=== PATIENT | female | born 1960 | race Caucasian/White ===

== ENCOUNTER 2016-08-25 18:28 | Emergency (ER) | payer MEDICAID ==
[~2016-08-25] VITALS: Ht 167.6 cm; Wt 98.0 kg
[2016-08-25] MEDS ORDERED: ASPIRIN 325 MG TABLET PO ONE (19:00)
[2016-08-25 19:01] LABS: BASOPHILS % (AUTO) 0.4 % (0.0-2.0); EOSINOPHILS # (AUTO) 0.1 /CMM (0.0-0.7); EOSINOPHILS % (AUTO) 1.9 % (0.0-6.0); HEMATOCRIT 31 % (33-45); HEMOGLOBIN 10.6 g/dL (11.5-14.8); LYMPHOCYTES # (AUTO) 0.9 /CMM (0.8-4.8); LYMPHOCYTES % (AUTO) 19.4 % (20.0-44.0); MEAN CORPUSCULAR HEMOGLOBIN 29 PG (26.0-33.0); MEAN CORPUSCULAR HGB CONC 34 g/dl (31.0-36.0); MEAN CORPUSCULAR VOLUME 84 fL (82-100); MONOCYTES # (AUTO) 0.4 /CMM (0.1-1.30); MONOCYTES % (AUTO) 8.3 % (2.0-12.0); NEUTROPHILS # (AUTO) 3.1 /CMM (1.8-8.9); PLATELET COUNT (AUTO) 301 /CMM (150-450); RDW COEFFICIENT OF VARIATION 12.8 (11.5-15.0); RED BLOOD CELL COUNT(AUTO) 3.67 MIL/uL (4.0-5.2); WHITE BLOOD COUNT (AUTO) 4.5 K/uL (4.3-11.0)
--- NOTE | 2016-08-25 19:03 | NUR ---
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 PATIENT IS AAOX4, ABLE TO MOVE ALL EXTREMITIES, NO S/S OF ACUTE DISTRESS. BREATHING EVEN AND UNLABORED. NONDIAPHORETIC. 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 PER FAMILY, PATIENT HAD STENT PLACEMENT 20.5 WEEKS AGO. INITIATED COMFORT MEASURES.
[2016-08-25] MEDS ORDERED: ASPIRIN 325 MG TABLET ONE (19:09)
[2016-08-25 19:10] LABS: CALCIUM, SERUM 8.5 mg/dL (8.5-10.1); CARBON DIOXIDE 27 mmol/L (21-32); CHLORIDE 110 mmol/L (98-107); CREATININE 0.7 mg/dL (0.6-1.3); GLUCOSE 139 mg/dL (74-106); POTASSIUM 3.4 mmol/L (3.5-5.1); SODIUM SERUM 142 mmol/L (136-145); UREA NITROGEN, BLOOD 15 mg/dL (7-18)
[2016-08-25 19:16] LABS: ALANINE AMINOTRANSFERASE 21 U/L (12-78); ALBUMIN 3.3 g/dL (3.4-5.0); ALKALINE PHOSPHATASE 61 U/L (46-116); ASPARTATE AMINOTRANSFERASE 13 U/L (15-37); BILIRUBIN,DIRECT 0.1 mg/dL (0.0-0.2); BILIRUBIN,TOTAL 0.4 mg/dL (0.2-1.0)
[2016-08-25 19:19] LABS: TROPONIN I < 0.017 ng/mL (0.00-0.056)
[2016-08-25 19:29] LABS: D-DIMER 4.05 mg/L(FEU (0.17-0.50); INR 1.16 (0.87-1.13); PROTHROMBIN TIME 12.5 SECS (9.5-12.7)
[2016-08-25] MEDS ORDERED: CT SWABBABLE VALVE TRANS SET 1 EA INFUS.SET MC ONE (19:50)
[2016-08-25] MEDS ORDERED: IOHEXOL-350 100 ML VIAL IV ONE (19:50)
[2016-08-25] MEDS ORDERED: IV NS 0.9% 250 ML IV ONE (19:50)
[2016-08-25 22:15] VITALS: BP 132/78
--- NOTE | 2016-08-25 22:15 | NUR ---
IV removed. Catheter intact and site benign. Pressure and 4x4 applied to site. No bleeding noted. Patient discharged to home in stable condition. Written and verbal after care instructions given. Patient verbalizes understanding of instruction. Patient is ambulatory with steady gait, accompanied by family going home. No further complaints.
== END 2016-08-25 22:16 | disposition home or self-care (01) ==
LOC: ER 18:29
DX: R07.89 Other chest pain (principal); I25.2 Old myocardial infarction
CPT/HCPCS: 36415; 71010; 71275; 80048; 80076; 84484 ×2; 85025; 85378; 85730; 93005; 99285; A4606; J7050; Q9967; Z7610

== ENCOUNTER 2016-09-29 14:18 | Inpatient (IN) | payer MEDICAID ==
[~2016-09-29] VITALS: Ht 165.1 cm; Wt 90.7 kg
--- NOTE | 2016-09-29 14:21 | NUR ---
PT CALLED TO TRIAGE, PT NOT IN WAITING ROOM
--- NOTE | 2016-09-29 14:35 | NUR ---
DR FRANCES AT BEDSIDE FOR EVAL
--- NOTE | 2016-09-29 14:37 | NUR ---
SOB AND WEAKNESS X 2 DAYS. GOWNED PT PLACED ON MONITOR. AWAITING MD ORDER.
--- NOTE | 2016-09-29 14:40 | NUR ---
CALLED NURSING LICENSED NUCLEAR OPERATOR FOR TELE BED
--- NOTE | 2016-09-29 14:45 | NUR ---
RAC #20 IV ACCESS. BLOOD SAMPLE COLLECTED SENT TO LAB
[2016-09-29 14:47] LABS: BASOPHILS % (AUTO) 0.4 % (0.0-2.0); EOSINOPHILS # (AUTO) 0.1 /CMM (0.0-0.7); EOSINOPHILS % (AUTO) 2.6 % (0.0-6.0); HEMATOCRIT 35 % (33-45); HEMOGLOBIN 11.8 g/dL (11.5-14.8); LYMPHOCYTES # (AUTO) 0.8 /CMM (0.8-4.8); LYMPHOCYTES % (AUTO) 28.8 % (20.0-44.0); MEAN CORPUSCULAR HEMOGLOBIN 29 PG (26.0-33.0); MEAN CORPUSCULAR HGB CONC 34 g/dl (31.0-36.0); MEAN CORPUSCULAR VOLUME 87 fL (82-100); MONOCYTES # (AUTO) 0.3 /CMM (0.1-1.30); MONOCYTES % (AUTO) 11.6 % (2.0-12.0); NEUTROPHILS # (AUTO) 1.7 /CMM (1.8-8.9); NEUTROPHILS % (AUTO) 56.6 % (43.0-81.0); PLATELET COUNT (AUTO) 195 /CMM (150-450); RDW COEFFICIENT OF VARIATION 14.9 (11.5-15.0); RED BLOOD CELL COUNT(AUTO) 4.04 MIL/uL (4.0-5.2); WHITE BLOOD COUNT (AUTO) 2.9 K/uL (4.3-11.0)
[2016-09-29] MEDS ORDERED: ASPI-991 PO (14:48)
[2016-09-29] MEDS ORDERED: ESCI10TA PO (14:48)
[2016-09-29] MEDS ORDERED: CLOP75TA2 PO (14:48)
[2016-09-29] MEDS ORDERED: FAMO20TA8 PO (14:48)
[2016-09-29] MEDS ORDERED: TRAM50TA2 PO (14:48)
[2016-09-29] MEDS ORDERED: FLUD0.1T PO (14:48)
[2016-09-29] MEDS ORDERED: ASPIRIN 325 MG TABLET ONE (14:51)
[2016-09-29] MEDS ORDERED: NITROGLYCERIN PACKET 1 GM PACKET ONE (14:52)
[2016-09-29 14:57] LABS: CALCIUM, SERUM 8.6 mg/dL (8.5-10.1); CARBON DIOXIDE 30 mmol/L (21-32); CHLORIDE 108 mmol/L (98-107); CREATININE 0.7 mg/dL (0.6-1.3); GLUCOSE 90 mg/dL (74-106); POTASSIUM 3.8 mmol/L (3.5-5.1); SODIUM SERUM 141 mmol/L (136-145); UREA NITROGEN, BLOOD 9 mg/dL (7-18)
--- NOTE | 2016-09-29 14:58 | NUR ---
VERBAL ORDER FROM DR FRANCES START O2 @2LPM VIA NC CONT FOR SOB
[2016-09-29] MEDS ORDERED: NITROGLYCERIN PACKET 1 GM PACKET TD ONE (15:00)
[2016-09-29] MEDS ORDERED: ASPIRIN 325 MG TABLET PO ONE (15:00)
[2016-09-29 15:01] LABS: INR 1.22 (0.87-1.13); PROTHROMBIN TIME 12.8 SECS (9.5-12.7)
[2016-09-29 15:03] LABS: ALANINE AMINOTRANSFERASE 25 U/L (12-78); ALKALINE PHOSPHATASE 64 U/L (46-116); ASPARTATE AMINOTRANSFERASE 21 U/L (15-37); BILIRUBIN,DIRECT 0.2 mg/dL (0.0-0.2); BILIRUBIN,TOTAL 0.7 mg/dL (0.2-1.0); TOTAL PROTEIN, SERUM 7.4 g/dL (6.4-8.2)
[2016-09-29 15:05] LABS: TROPONIN I < 0.017 ng/mL (0.00-0.056)
--- NOTE | 2016-09-29 15:35 | NUR ---
PAGED DR LANGLEY FOR ADMISSION
--- NOTE | 2016-09-29 15:36 | NUR ---
DR FRANCES ON THE PHONE WITH DR LANGLEY
--- NOTE | 2016-09-29 15:38 | NUR ---
PAGED DR CARRASQUILLO FOR CONSULT
--- NOTE | 2016-09-29 15:55 | NUR ---
GAVE REPORT TO FABIANA HERNANDEZCREATIVE SPECIALIST ROOM [address] TRANSF[address]S [address]OL. DR LANGLEY ADMITTING. ACS DX
--- NOTE | 2016-09-29 17:05 | NUR ---
rn telephoniclead burner/initial notes Admitted a 55 years old female patient from ER who came in with the diagnosis of SOB AND WEAKNESS Accompanied by Son, daughter and ER nurse via maile. No complaint of pain or discomfort noted, nor chest pain. Pt on 2 L Nasal cannula and tolerated well. Pt is currently alert and oriented x 3, verbally responsive and able to make needs known speaks Danish speaking. Pt on tele monitor sinus dustin heart rate of 57. Ambulatory skin intact. Pt daughter signed authorization for use or disclosure of health information for [facility]. pt currently eating [place] offered by daughter no difficulty noted . Kept patient clean and comfortable in bed, call light with in patient reach, will continue to monitor accordingly.
--- NOTE | 2016-09-29 18:09 | NUR ---
RN NOTE PATIENT COMPLAINING OF CHEST PAIN PATIENT STATES SHE IS HAVING CHEST PAIN , BURNING SENSATION UNDER HER SKIN. MD CARRASQUILLO CONTACT AND INFORMED AND MD ORDER MYLANTA 30CC PO X 1 DOSE NOW AND NITROGLYCERIN PASTE Q 12HRS
[2016-09-29] MEDS ORDERED: MAG HYDROX/AL HYDROX/SIMETH 30 ML UDC PO PRN (18:30)
--- NOTE | 2016-09-29 19:20 | NUR ---
RN INITIAL NOTES RECEIVED PATIENT IN BED, OBSERVED TO BE LETHARGIC, EASILY AROUSABLE WITH VERBAL AND TACTILE STIMULI. DENIES ANY PAIN AND DISCOMFORT. ON 2LPM OF O2 VIA NC, RESPIRATION IS EVEN AND UNLABORED WITH NO DISTRESS. PATIENT IS SB ON MONITOR, WITH HR AT 46, PATIENT WITH NO DISTRESS, VS STABLE. R AC G20, FLUSHED AND PATENT, NO SIGNS OF INFILTRATION. PATIENT'S NEEDS ANTICIPATED AND MET. SAFETY AND COMFORT ENSURED. WILL F/UP WITH DR. LANGLEY FOR ADMIT ORDERS. CALL LIGHT IN REACH. WILL MONITOR.
[2016-09-29 20:00] VITALS: BP 102/55
--- NOTE | 2016-09-29 20:06 | NUR ---
SENIOR COMPENSATION ANALYST FINAL NOTE On tele monitor SR heart rate of 48. Ambulatory skin intact. Informed Dr. LANGLEY AND DR CARRASQUILLO NOTIFIED regarding admission and admission orders and diet and made aware. [place] offered. Kept patient clean and comfortable in bed, call light with in patient reach, will continue to monitor accordingly. CONTINUATION OF CARE ENDORSED TO PM RN
[2016-09-29 20:30] VITALS: BP 102/55
[2016-09-29] MEDS: METOPROLOL TARTRATE 25 MG TABLET PO SCH (21:00)
[2016-09-29] MEDS: NITROGLYCERIN 30 GM TUBE TP SCH (21:49)
[2016-09-29] MEDS ORDERED: ATORVASTATIN 40 MG TABLET PO SCH (22:00)
--- NOTE | 2016-09-29 22:00 | NUR ---
RN NOTES PATIENT'S METOPROLOL NON-ADMINISTERED D/T PATIENT'S HR IS LOW, HR AT 46. CN MADE AWARE. ALL OTHER HS MEDS GIVEN ORDERED.
[2016-09-30] VITALS: BP 119/63
--- NOTE | 2016-09-30 00:30 | NUR ---
RN NOTES PATIENT IN BED, SLEEPING COMFORTABLY. NO DISTRESS. REMAINS ON SB WITH HR OF 46, SLEEPING AND COMFORTABLY, EASILY AROUSABLE WITH STIMULI. CALL LIGHT IN REACH. PATIENT PLACED ON NPO ORDERED. WILL MONITOR.
[2016-09-30 04:00] VITALS: BP 129/65
--- NOTE | 2016-09-30 06:38 | NUR ---
RN CLOSING NOTES PATIENT WITH NO ACUTE CHANGE IN CONDITION OBSERVED OVERNIGHT. NO C/O CHEST PAIN AND PATIENT WITH NO DISTRESS. REMAINS SB OVERNIGHT WITH HR AT >/= 45. IN AM, AROUND 0530, PATIENT'S HR WAS IN THE 50-60s. PATIENT'S NEEDS ANTICIPATED AND MET. SAFETY AND COMFORT ENSURED. BED IN LOW AND LOCKED POSITION. WILL ENDORSED ACCORDINGLY FOR CONTINUITY OF CARE.
[2016-09-30 06:44] LABS: BASOPHILS % (AUTO) 0.2 % (0.0-2.0); EOSINOPHILS # (AUTO) 0.1 /CMM (0.0-0.7); EOSINOPHILS % (AUTO) 1.2 % (0.0-6.0); HEMATOCRIT 35 % (33-45); LYMPHOCYTES # (AUTO) 0.7 /CMM (0.8-4.8); LYMPHOCYTES % (AUTO) 15.6 % (20.0-44.0); MEAN CORPUSCULAR HEMOGLOBIN 30 PG (26.0-33.0); MEAN CORPUSCULAR HGB CONC 34 g/dl (31.0-36.0); MEAN CORPUSCULAR VOLUME 87 fL (82-100); MONOCYTES # (AUTO) 0.4 /CMM (0.1-1.30); MONOCYTES % (AUTO) 8.9 % (2.0-12.0); NEUTROPHILS # (AUTO) 3.5 /CMM (1.8-8.9); NEUTROPHILS % (AUTO) 74.1 % (43.0-81.0); PLATELET COUNT (AUTO) 180 /CMM (150-450); RDW COEFFICIENT OF VARIATION 15.7 (11.5-15.0); RED BLOOD CELL COUNT(AUTO) 4.03 MIL/uL (4.0-5.2); WHITE BLOOD COUNT (AUTO) 4.8 K/uL (4.3-11.0)
[2016-09-30 07:06] LABS: ALBUMIN 3.6 g/dL (3.4-5.0); BILIRUBIN,TOTAL 0.7 mg/dL (0.2-1.0); CALCIUM, SERUM 8.3 mg/dL (8.5-10.1); CREATININE 0.6 mg/dL (0.6-1.3); POTASSIUM 3.5 mmol/L (3.5-5.1)
[2016-09-30 07:09] LABS: CHOLESTEROL 121 mg/dL (<200); FERRITIN 73 ng/mL (8-388); HDL CHOLESTEROL 49 mg/dL (40-60); LDL 69 mg/dL (0-99); TRIGLYCERIDES 37 mg/dL (30-150)
--- NOTE | 2016-09-30 07:40 | NUR ---
RN INITIAL NOTES RECEIVED PATIENT IN BED SLEEPING , EASILY AROUSABLE WITH VERBAL STIMULI. DENIES ANY PAIN AND DISCOMFORT. ON 2LPM OF O2 VIA NC, RESPIRATION IS EVEN AND UNLABORED WITH NO DISTRESS. PATIENT IS SB ON MONITOR, WITH HR AT 54, PATIENT WITH NO DISTRESS, VS STABLE. R AC G20, FLUSHED AND PATENT, NO SIGNS OF INFILTRATION. PATIENT'S NEEDS ANTICIPATED AND MET. SAFETY AND COMFORT ENSURED.CALL LIGHT WITHIN REACH WILL CONTINUE TO MONITOR
[2016-09-30 07:49] LABS: IRON, SERUM 46 ug/dl (50-175); TOTAL IRON BINDING CAPACITY 256 ug/dl (250-450)
[2016-09-30 08:00] VITALS: BP 140/76
[2016-09-30 08:16] VITALS: BP 114/76
[2016-09-30] MEDS: METOPROLOL TARTRATE 25 MG TABLET PO SCH (08:17)
[2016-09-30] MEDS: NITROGLYCERIN 30 GM TUBE TP SCH (08:18)
[2016-09-30] MEDS ORDERED: FAMOTIDINE (20 MG) 20 MG TABLET PO SCH (09:00)
[2016-09-30] MEDS ORDERED: ASPIRIN 81 MG TAB.CHEW PO SCH (09:00)
[2016-09-30] MEDS ORDERED: FLUDROCORTISONE 0.1 MG TABLET PO SCH (09:00)
[2016-09-30] MEDS ORDERED: ESCITALOPRAM OXALATE (10 MG) 10 MG TABLET PO SCH (09:00)
[2016-09-30] MEDS ORDERED: TRAMADOL HCL 50 MG TABLET PO SCH (09:00)
[2016-09-30] MEDS ORDERED: CLOPIDOGREL BISULFATE 75 MG TABLET PO SCH (09:00)
[2016-09-30] MEDS ORDERED: ATOR10TA PO (09:18)
--- NOTE | 2016-09-30 09:48 | NUR ---
RN NOTE RN SPOKE WITH MD. CARRASQUILLO AND ALSO MD. LANGLEY IN REGARDS TO PATIENTS CURRENT CONDITION PATIENT STABLE NO COMPLAINTS OR ISSUES PRESENT, PATIENT EVALUATED BY BOTH PROVIDERS AND HAS BEEN CLEARED FOR DISCHARGE. PT EDUCATION PROVIDED ALONG WITH EXIT CARE. ALL NEEDS ATTENDED PT VITALS AND LABS WNL. RN WILL CONTACT PATIENT FAMILY TO NOTIFY THEM. CHARGE NURSE NOTIFIED
[2016-09-30 12:00] VITALS: BP 138/84
== END 2016-09-30 13:00 | disposition home or self-care (01) | DRG 198 ==
LOC: ER 14:24 → TELE1 16:35
PROVIDERS: ADMIT Internal Medicine; ATTEND Internal Medicine
DX: R07.89 Other chest pain (principal); I25.2 Old myocardial infarction; E78.5 Hyperlipidemia, unspecified; I25.10 Atherosclerotic heart disease of native coronary artery without angina pectoris; Z79.899 Other long term (current) drug therapy; Z98.61 Coronary angioplasty status; Z79.82 Long term (current) use of aspirin
CPT/HCPCS: 36415; 70450-TC; 71010-TC; 80048-TC; 80053-TC; 80061-TC; 80076-TC; 82728-TC; 82746; 83540-TC; 84484-TC; 85025-TC; 85730-TC; 87081-TC; A4606; Z7610

== ENCOUNTER 2017-02-02 18:50 | Inpatient (IN) | payer MEDICAID ==
[~2017-02-02] VITALS: Ht 170.2 cm; Wt 100.2 kg
[~2017-02-02 18:50] MED LIST: ASPI-991 PO; ATOR10TA PO; CLOP75TA2 PO; ESCI10TA PO; FAMO20TA8 PO; FLUD0.1T PO; TRAM50TA2 PO
--- NOTE | 2017-02-02 19:00 | NUR ---
BB FAMILY FOR LT SIDED CHEST PAIN RADIATES TO LT ARM,LT UPPER BACK X 1 WK, NAD NOTED, VSS, RESP EVEN AND UNLABORED, SKIN WARM AND DRY, PT PUT ON HOSPITAL GOWN AND MONITOR, WAITING FOR MD ARDON.
[2017-02-02] MEDS ORDERED: NITROGLYCERIN 0.4 MG/TAB BOTTLE ONE (19:18)
[2017-02-02] MEDS ORDERED: NITROGLYCERIN 0.4 MG/TAB BOTTLE SL ONE (19:30)
[2017-02-02 19:31] LABS: BASOPHILS % (AUTO) 0.6 % (0.0-2.0); EOSINOPHILS # (AUTO) 0.1 /CMM (0.0-0.7); EOSINOPHILS % (AUTO) 1.3 % (0.0-6.0); HEMATOCRIT 37 % (33-45); HEMOGLOBIN 12.6 g/dL (11.5-14.8); LYMPHOCYTES # (AUTO) 1.1 /CMM (0.8-4.8); LYMPHOCYTES % (AUTO) 27.2 % (20.0-44.0); MEAN CORPUSCULAR HEMOGLOBIN 29 PG (26.0-33.0); MEAN CORPUSCULAR HGB CONC 34 g/dl (31.0-36.0); MEAN CORPUSCULAR VOLUME 85 fL (82-100); MONOCYTES # (AUTO) 0.4 /CMM (0.1-1.30); MONOCYTES % (AUTO) 11.5 % (2.0-12.0); NEUTROPHILS # (AUTO) 2.3 /CMM (1.8-8.9); NEUTROPHILS % (AUTO) 59.4 % (43.0-81.0); PLATELET COUNT (AUTO) 197 /CMM (150-450); RDW COEFFICIENT OF VARIATION 13.6 (11.5-15.0); RED BLOOD CELL COUNT(AUTO) 4.37 MIL/uL (4.0-5.2); WHITE BLOOD COUNT (AUTO) 3.9 K/uL (4.3-11.0)
[2017-02-02 19:42] LABS: CALCIUM, SERUM 8.7 mg/dL (8.5-10.1); CARBON DIOXIDE 29 mmol/L (21-32); CHLORIDE 106 mmol/L (98-107); CREATININE 0.6 mg/dL (0.6-1.3); GLUCOSE 105 mg/dL (74-106); POTASSIUM 3.9 mmol/L (3.5-5.1); SODIUM SERUM 139 mmol/L (136-145); UREA NITROGEN, BLOOD 15 mg/dL (7-18)
[2017-02-02 19:45] LABS: INR 1.18 (0.87-1.13); PROTHROMBIN TIME 12.3 SECS (9.5-12.7)
[2017-02-02 19:52] LABS: TROPONIN I < 0.017 ng/mL (0.00-0.056)
[2017-02-02 21:50] VITALS: BP 162/77
--- NOTE | 2017-02-02 22:00 | NUR ---
RN NOTES RECEIVED NEW ADMIT FROM ER WITH DX OF CHEST PAIN. PATIENT IS ALERT AND ORIENTED X4 CALM, DENIES CHEST PAIN AT THIS TIME, TOLERATING ROOM AIR, SPO2 99%, ON AUSCULTATION, LUNG SOUNDS ARE CLEAR, ABDOMEN SOFT AND NON-TENDER, SPEAKS ONLY UPPER SORBIAN. RIGHT AC PERIPHERAL LINE IS PATENT AND SECURED WITH TAPE, CONTINENT OF BOWEL AND BLADDER, UNSTEADY GAIT, REQUIRES SUPERVISION WHEN AMBULATING. GENERAL SKIN CONDITION IS INTACT, NO EDEMA TO LOWER EXTREMITIES, DEMONSTRATED USE OF CALL LIGHT. WILL CONTINUE TO MONITOR.
[2017-02-02] MEDS ORDERED: IV D5/0.45 NACL 1,000 ML IV SCH (22:30)
[2017-02-02] MEDS ORDERED: ENOXAPARIN SODIUM 40 MG/0.4 ML DISP.SYRIN SQ SCH (22:30)
[2017-02-02] MEDS ORDERED: ZOLPIDEM TARTRATE 5 MG TABLET PO PRN (22:30)
[2017-02-02] MEDS ORDERED: NITROGLYCERIN 0.4 MG/TAB BOTTLE SL PRN (22:30)
[2017-02-02] MEDS ORDERED: HYDROCODONE/APAP 5/325MG 1 EACH TABLET PO PRN ×3 (22:30)
[2017-02-02] MEDS ORDERED: ENOXAPARIN SODIUM 40 MG/0.4 ML DISP.SYRIN SQ ONE (22:39)
[2017-02-02 22:51] VITALS: BP 162/77
--- NOTE | 2017-02-02 23:30 | NUR ---
RN NOTES SPOKE WITH DAUGHTER YONY ON THE PHONE REGARDING PATIENT'S MEDICAL HISTORY AND VACCINATION STATUS.
[2017-02-03] VITALS (7 sets, daily range): BP systolic 105–134; BP diastolic 44–79
--- NOTE | 2017-02-03 06:29 | NUR ---
RN NOTES PATIENT RESTING COMFORTABLY IN BED, NO DISTRESS, RESPIRATION EVEN AND UNLABORED, NO COMPLAIN OF CHEST PAIN DURING SHIFT, RAC PERIPHERAL LINE IS PATENT AND INFUSING WELL, KEPT SAFE AND COMFORTABLE, CALL LIGHT WITHIN REACH.
[2017-02-03 06:44] LABS: CALCIUM, SERUM 8.2 mg/dL (8.5-10.1); CREATININE 0.6 mg/dL (0.6-1.3); POTASSIUM 3.3 mmol/L (3.5-5.1)
[2017-02-03 06:50] LABS: THYROID STIMULATING HORMONE 1.995 uIU/mL (0.358-3.74)
[2017-02-03 06:59] LABS: BASOPHILS % (AUTO) 0.9 % (0.0-2.0); EOSINOPHILS # (AUTO) 0.1 /CMM (0.0-0.7); EOSINOPHILS % (AUTO) 1.4 % (0.0-6.0); HEMATOCRIT 37 % (33-45); HEMOGLOBIN 12.2 g/dL (11.5-14.8); MEAN CORPUSCULAR HEMOGLOBIN 28 PG (26.0-33.0); MEAN CORPUSCULAR HGB CONC 33 g/dl (31.0-36.0); MEAN CORPUSCULAR VOLUME 85 fL (82-100); MONOCYTES # (AUTO) 0.4 /CMM (0.1-1.30); MONOCYTES % (AUTO) 9.6 % (2.0-12.0); NEUTROPHILS # (AUTO) 2.3 /CMM (1.8-8.9); NEUTROPHILS % (AUTO) 62.1 % (43.0-81.0); PLATELET COUNT (AUTO) 172 /CMM (150-450); RDW COEFFICIENT OF VARIATION 13.5 (11.5-15.0); RED BLOOD CELL COUNT(AUTO) 4.34 MIL/uL (4.0-5.2); WHITE BLOOD COUNT (AUTO) 3.9 K/uL (4.3-11.0)
[2017-02-03] MEDS ORDERED: ENOXAPARIN SODIUM 40 MG/0.4 ML DISP.SYRIN SQ SCH (07:19)
--- NOTE | 2017-02-03 07:30 | NUR ---
RN OPENING NOTES RECEIVED PT. NPO AFTER MIDNIGHT FOR POSSIBLE LEXISCAN TEST. PT. IS IN BED A&OX4. BREATHING UNLABORED AND EVENLY ON ROOM AIR, WITHOUT SOB. NO S/S OF ACUTE DISTRESS. IV FLUIDS RUNNING AT 50 ML/HR. BED IS IN LOWEST AND LOCKED POSITION. 2 SIDE RAILS UP, AND INSTRUCTED PT. TO USE CALL LIGHT FOR ASSISTANCE. ALL NEEDS MET. WILL CONTINUE TO ASSESS AND MONITOR.
[2017-02-03] MEDS ORDERED: REGADENOSON 0.4 MG/5 ML DISP.SYRIN IVP ONE (09:00)
[2017-02-03] MEDS ORDERED: CLOPIDOGREL BISULFATE 75 MG TABLET PO SCH ×2 (09:00)
[2017-02-03] MEDS ORDERED: ESCITALOPRAM OXALATE (10 MG) 10 MG TABLET PO SCH ×2 (09:00)
[2017-02-03] MEDS ORDERED: TRAMADOL HCL 50 MG TABLET PO SCH ×2 (09:00)
[2017-02-03] MEDS ORDERED: FLUDROCORTISONE 0.1 MG TABLET PO SCH ×2 (09:00)
[2017-02-03] MEDS ORDERED: PANTOPRAZOLE 40 MG TABLET.DR PO SCH (09:00)
[2017-02-03] MEDS ORDERED: ASPIRIN 81 MG TAB.CHEW PO SCH (09:00)
[2017-02-03] MEDS ORDERED: FAMOTIDINE (20 MG) 20 MG TABLET PO SCH ×2 (09:00)
[2017-02-03] MEDS: POTASSIUM CHLORIDE 20 MEQ TAB.PRT.SR PO SCH ×2 (10:09→11:46)
--- NOTE | 2017-02-03 11:55 | NUR ---
RN NOTES SCANNED LST MEDICATION DOSE ON PREVIOUS MEDICATION ORDER. PT. RECEIVED A TOTAL OF 40 MEQ POTASSIUM PO.
[2017-02-03] MEDS ORDERED: POTASSIUM CHLORIDE 20 MEQ TAB.PRT.SR PO SCH (12:00)
[2017-02-03] MEDS ORDERED: ATORVASTATIN 10 MG TABLET PO SCH (18:00)
--- NOTE | 2017-02-03 18:15 | NUR ---
VISUAL LEAD NOTES PT. LEFT IN MEDICALLY STABLE CONDITION ALONG SIDE WITH DAUGHTER BY WHEEL CHAIR. PT. WAS PROVIDED DISCHARGE INSTRUCTIONS, AND EDUCATION. PT. VERBALIZED UNDERSTANDING OF DISCHARGE INSTRUCTIONS WITH DAUGHTER AT BEDSIDE. PT. BELONGING LIST WAS CHECKED AND SIGNED. ID BAND AND IV WAS REMOVED WITHOUT COMPLICATIONS. LEFT WITH DISCHARGE PACKET. ALL QUESTIONS ANSWERED.
== END 2017-02-03 18:35 | disposition home or self-care (01) | DRG 203 ==
LOC: ER 18:51 → TELE 20:37 → MED 02-03 10:15
PROVIDERS: ADMIT Internal Medicine; ATTEND Internal Medicine
DX: M94.0 Chondrocostal junction syndrome [Tietze] (principal); I10 Essential (primary) hypertension; I25.10 Atherosclerotic heart disease of native coronary artery without angina pectoris; E78.5 Hyperlipidemia, unspecified; F32.9 Major depressive disorder, single episode, unspecified; E87.6 Hypokalemia; Z98.61 Coronary angioplasty status; R42 Dizziness and giddiness; R00.1 Bradycardia, unspecified; Z79.899 Other long term (current) drug therapy
CPT/HCPCS: 36415; 70450-TC; 71010-TC; 80048-TC; 80061-TC; 84443-TC; 84484-TC; 85025-TC; 85730-TC; 87081-TC; A4606; A9502; J1650; J2785; J3490; Z7610